=== PATIENT | male | born 1960 | race Caucasian/White ===

== ENCOUNTER → 2023-02-11 13:27 | Outpatient (CLI) | payer BC, SELFPAY | PROVIDERS: PCP Family Medicine; Visit Provider Nurse Practitioner Family | DX: M79.672 Pain in left foot (principal) | CPT/HCPCS: 73630 ==

== ENCOUNTER 2024-07-24 06:45 | Outpatient (CLI) | payer BC, SELFPAY ==
--- NOTE | ~2024-07-24 | NM_ITS ---
EXAMINATION: NM thyroid scan w uptake DATE: 07/25/2024 07:50 INDICATION: Hyperthyroidism. COMPARISON: None. TECHNIQUE: 0.522 mCi I-123 was administered orally. Scintigraphic images of the thyroid gland were o btained at 24 hours. Thyroid uptake was calculated by the technologist. FINDINGS: The thyroid uptake is 14% (normal 10-30%), with the right lobe measuring 7% uptake and the left 8%. T here is no focal area of decreased or increased activity to suggest hypofunctioning or hyperfunctioni ng nodule. IMPRESSION: 1. Normal thyroid scintigraphy and 24-hour iodine uptake. Reviewed, dictated and finalized at location A. [employer]
== END 2024-07-24 06:46 | disposition home or self-care (01) ==
PROVIDERS: PCP Family Medicine; Visit Provider Internal Medicine
DX: R94.6 Abnormal results of thyroid function studies (principal)
CPT/HCPCS: 78014; A9516